=== PATIENT | female | born 1955 | race Caucasian/White ===

== ENCOUNTER 2017-06-23 00:24 | Inpatient (IN) | payer OTHER ==
[2017-06-22 15:15] LABS: INR 1.05
[~2017-06-23] VITALS: Ht 162.6 cm; Wt 90.3 kg
[2017-06-23] VITALS (17 sets, daily range): BP systolic 77–152; BP diastolic 60–89
[~2017-06-23 00:24] MED LIST: ALPR-429 PO; ASPI-1471 PO; CHOL500045 PO; ESOM40CA42 PO; ESTR0.62 PO; HYDR12.561 PO; IRBE1TAB67 PO; LORA1TAB69 PO; MELO-205 PO; MELO-207 PO; METO25TA23 PO
[2017-06-23] MEDS ORDERED: CLINDAMYCIN(*) 900 MG/NS 50 ML 50 ML IVPB ONE (06:00)
[2017-06-23] MEDS ORDERED: cloNIDine EPIDUR INJ 100MCG/ML 40 MCG, ROPIVACAINE 0.5% 20 ML VIAL 25 ML, EPINEPHrine H... INJ ONE (06:00)
[2017-06-23] MEDS ORDERED: TRANEXAMIC AC 1000 MG/10ML SDV 1,000 MG in DEXTROSE 5% 50 ML BAG 50 ML IV ONE (06:00)
[2017-06-23] MEDS ORDERED: LIDOCAINE/SOD BICARB 8.4% SYR ID ONE (06:15)
[2017-06-23] MEDS ORDERED: MIDAZOLAM 2 MG/2 ML VIAL IVP PRN (06:15)
[2017-06-23] MEDS ORDERED: NORMOSOL R SOLN(*) 1000 ML BAG 1,000 ML IV PRN ×2 (06:15→12:20)
[2017-06-23] MEDS ORDERED: COLC0.6C3 PO (08:30)
--- NOTE | 2017-06-23 08:49 | RADIOLOGY IMAGING REPORT ---
FACILITY: [facility] [place] PATIENT NAME: Lita Galdamez : 1955 MR: [id number] V: [id number] EXAM DATE: ORDERING PHYSICIAN: SID DIAS TECHNOLOGIST: Location: [facility] - [place], [place] Patient: Lita Galdamez : 1955 Visit/Account:[id number] Date of Sevice: 06/23/2017 Exam type: KNEE LIMITED RIGHT History: Total knee arthroplasty Comparison: None. Findings: Single lateral view of the right knee is provided. There are changes of severe osteoarthritis in the patellofemoral compartment but also the medial lateral compartment. Marked osteophytosis and joint space narrowing is noted. Trace knee effusion is noted. No acute fracture. IMPRESSION: 1. Significant osteoarthritis of the right knee but no acute osseous abnormality. Report Dictated By: Bruce Angelo MD at 06/23/2017 8:38 AM Report E-Signed By: Bruce Angelo MD at 06/23/2017 8:44 AM WSN:[id number]
[2017-06-23] MEDS ORDERED: DEXAMETHASONE SOD PHOS 10MG/ML ONE (09:40)
[2017-06-23] MEDS ORDERED: ONDANSETRON 4 MG/2 ML VIAL ONE (09:40)
[2017-06-23] MEDS ORDERED: MORPHINE PF 5 MG/10 ML AMP ONE (09:40)
[2017-06-23] MEDS ORDERED: PROPOFOL EMUL(*) 10MG/ML 20 ML 40 ML ONE (09:40)
[2017-06-23] MEDS ORDERED: PHENYLEPHRINE/NS/PF 0.4MG/10ML ONE (10:18)
[2017-06-23] MEDS ORDERED: NS 0.9% IRRIGATION 1000ML PLCT IR ONE (11:36)
[2017-06-23] MEDS ORDERED: MORPHINE SULFATE 30 MG PCA IV PRN (12:20)
[2017-06-23] MEDS ORDERED: BISACODYL 10 MG SUPP PR PRN (12:20)
[2017-06-23] MEDS ORDERED: PROMETHAZINE 25 MG/ML 1 ML AMP IVP PRN (12:20)
[2017-06-23] MEDS ORDERED: ZOLPIDEM TARTRATE 5 MG TAB PO PRN (12:20)
[2017-06-23] MEDS ORDERED: MAGNESIUM HYDROXIDE* 30ML UDCP PO PRN (12:20)
[2017-06-23] MEDS ORDERED: NALOXONE HCL 0.4 MG/ML VIAL IVP PRN ×2 (12:20→12:25)
[2017-06-23] MEDS ORDERED: MORPHINE 4 MG/ML SYR IVP PRN (12:20)
[2017-06-23] MEDS ORDERED: FLUSH 10 ML SYR IVP PRN (12:20)
[2017-06-23] MEDS ORDERED: diphenhydrAMINE 25 MG CAP PO PRN (12:25)
[2017-06-23] MEDS: ONDANSETRON 4 MG/2 ML VIAL IVP PRN (12:55)
[2017-06-23] MEDS ORDERED: PROMETHAZINE 25 MG/ML 1 ML AMP ONE (13:11)
[2017-06-23] MEDS ORDERED: NORMOSOL R SOLN(*) 1000 ML BAG 1,000 ML IV ONE (13:14)
--- NOTE | 2017-06-23 14:21 | RADIOLOGY IMAGING REPORT ---
FACILITY: [facility] PATIENT NAME: Ltia Galdamez : 1955 MR: [id number] V: [id number] EXAM DATE: ORDERING PHYSICIAN: SID DIAS TECHNOLOGIST: Location: [facility] Patient: Lita Galdamez : 1955 Visit/Account:[id number] Date of Sevice: 06/23/2017 KNEE LIMITED RIGHT History: Status post recent right knee replacement. Comparison study: June 23, 2017. Findings: Comparison the previous study shows that there has been interval placement of a right tota l knee prosthesis. There is soft tissue swelling and subcutaneous as well as intra-articular air rel ated to recent surgery. IMPRESSION: Status post recent right total knee replacement. Report Dictated By: Scot Dowell MD at 06/23/2017 2:15 PM Report E-Signed By: Scot Dowell MD at 06/23/2017 2:16 PM [id number]
[2017-06-23] MEDS ORDERED: ALPRAZolam 0.25 MG TAB PO PRN (14:50)
--- NOTE | 2017-06-23 16:23 | Hospitalist Consultation ---
History of Present Illness Requesting Physician Dr. Herzog Reason for Consult Hypertension History of Present Illness This patient was admitted for knee replacement surgery. It is reported that the surgery went well and was without complication. History Problems: (1) Essential hypertension (2) Gout Home Meds Reported Medications Colchicine (Colchicine) 0.6 Mg Capsule, 1 TAB PO DAILY 06/23/17 Loratadine/Pseudoephedrine (CLARITIN-D 24 HOUR TABLET) 1 Each Tab.er.24h, 1 EACH PO PRN Y for ALLERGY SYMPTOMS 06/17/17 Estrogens, Conjugated 0.625 Mg Tab (PREMARIN 0.625 MG TAB) 0.625 Mg Tablet, 0.625 MG PO QDAY, TAB 06/17/17 Meloxicam (MELOXICAM) 7.5 Mg Tablet, 15 MG PO QDAY 06/17/17 Cholecalciferol (Vitamin D3) (VITAMIN D) 5,000 Unit Tablet, 5000 UNIT PO QDAY 06/17/17 Aspirin (ASPIR 81) 81 Mg Tablet.dr, 81 MG PO QDAY, TAB 06/17/17 Alprazolam (XANAX) 0.5 Mg Tablet, 0.25 MG PO PRN Y for ANXIETY, TAB 06/17/17 Hydrochlorothiazide (HYDROCHLOROTHIAZIDE) 12.5 Mg Tablet, 1 TAB PO QDAY, TAB 06/17/17 Irbesartan/Hydrochlorothiazide (AVALIDE 300-12.5 MG TABLET) 1 Each Tablet, 1 EACH PO QDAY 06/17/17 Metoprolol Succinate (METOPROLOL SUCCINATE) 25 Mg Tab.er.24h, 3 TAB PO BID, TAB 06/17/17 Esomeprazole Magnesium (NEXIUM) 40 Mg Capsule.dr, 1 CAP PO QDAY, CAP 06/17/17 Discontinued Reported Medications Meloxicam (MELOXICAM) 15 Mg Tablet, 15 MG PO QDAY 06/17/17 Allergies: Coded Allergies: amoxicillin (Verified Adverse Reaction, Severe, NAUSEA/VOMITING, 06/17/17) clavulanic acid (Verified Adverse Reaction, Severe, NAUSEA/VOMITING, ) Sulfa (Sulfonamide Antibiotics) (Verified Adverse Reaction, Intermediate, headache, 06/17/17) Patient History: FH: cancer FATHER FH: stroke MOTHER Pacemaker BROTHER OR SISTER Hx Smoking: Yes (smoked [id number]) Smoking Status: Former Smoker When Quit Tobacco?: 1987 Caffeine Intake: Soda Caffeine/Cups Per Day: 1 can per day Hx Alcohol Use: Yes Hx Substance Use Disorder: No Social Drug Use: Never History of IV Drug Use: No Review of Systems All Systems Reviewed/Normal: Yes Exam Vital Signs Vital Signs Date Time Temp Pulse Resp B/P (MAP) Pulse Ox O2 Delivery O2 Flow Rate FiO2 06/23/17 15:54 56 117/69 (85) 95 Nasal Cannula 2.0 06/23/17 14:58 97.4 06/23/17 13:53 16 Neuro: No Gross deficits Cardiovascular: Regular Rate and Rhythm Respiratory: Clear to Auscultation Extremities: No Edema Integumentary: No Cyanosis Assessment and Plan Problems: (1) S/P knee replacement Assessment & Plan: She is on aspirin prophylaxis. (2) Essential hypertension Assessment & Plan: She is on chronic treatment with Irbesartan, hydrochlorothiazide, and metoprolol. The irbesartan and metoprolol have been ordered with hold parameters. (3) Gout Assessment & Plan: She is on chronic treatment with colchicine. Copies to: SID HERZOG MD Venous Thromboembolism Antithrombotics Is Pt On Any Antithrombotics?: No Exam Sepsis Risk: No Definite Risk ROSEY HAQ DO Jun 23, 2017 16:23
[2017-06-23] MEDS: CLINDAMYCIN(*) 600 MG/NS 50 ML 50 ML IVPB SCH (16:48)
[2017-06-23] MEDS: METOPROLOL SUCC XL 25 MG TABCR PO SCH (20:17)
[2017-06-24] VITALS (7 sets, daily range): BP systolic 107–171; BP diastolic 67–83; Ht 162.6 cm; Wt 90.3 kg
[2017-06-24] MEDS: CLINDAMYCIN(*) 600 MG/NS 50 ML 50 ML IVPB SCH ×2 (00:25→09:21)
[2017-06-24] MEDS: ACETAMINOPHEN 500 MG TAB PO SCH ×4 (06:14→23:45)
--- NOTE | 2017-06-24 06:34 | Hospitalist Progress Note ---
Subjective Progress Notes Subjective This patient was admitted for knee replacement. She had no acute events overnight. Patient Complains of: Cardiovascular: No: Chest Pain Respiratory: No: Shortness of Breath Physical Exam Vital Signs Date Time Temp Pulse Resp B/P (MAP) Pulse Ox O2 Delivery O2 Flow Rate FiO2 06/24/17 04:27 90 Nasal Cannula 1.0 06/24/17 04:17 97.7 63 16 112/74 (87) Cardiovascular: Regular Rate and Rhythm Respiratory: Clear to Auscultation Result Diagram: 06/24/17 0535 Assessment and Plan Problems: (1) S/P knee replacement Assessment & Plan: She is on aspirin prophylaxis. (2) Essential hypertension Assessment & Plan: She is on chronic treatment with Irbesartan, hydrochlorothiazide, and metoprolol. The irbesartan and metoprolol have been ordered with hold parameters. (3) Gout Assessment & Plan: She is on chronic treatment with colchicine. Exam Sepsis Risk: No Definite Risk ROSEY HAQ DO Jun 24, 2017 06:34
[2017-06-24] MEDS: ASPIRIN 325 MG ENTERIC COATED PO SCH (09:19)
[2017-06-24] MEDS: METOPROLOL SUCC XL 25 MG TABCR PO SCH ×2 (09:20→20:41)
[2017-06-24] MEDS: IRBESARTAN 150 MG TAB PO SCH (09:20)
[2017-06-24] MEDS: oxyCODONE HCL 5 MG CAP PO PRN ×4 (09:20→20:41)
[2017-06-24] MEDS: PANTOPRAZOLE SOD 40 MG TABEC PO SCH (09:20)
[2017-06-24] MEDS: ESTROGENS CONJ 0.625 MG TAB PO SCH (09:21)
[2017-06-24] MEDS: COLCHICINE 0.6 MG TAB PO SCH (09:21)
[2017-06-24] MEDS ORDERED: MORPHINE 2 MG/ML SYR IVP PRN (19:25)
--- NOTE | 2017-06-24 19:33 | OPERATIVE REPORT 1 ---
EVENT DATE: June 23, 2017 SURGEON: Mohit Herzog MD ANESTHESIOLOGIST: Salas Craft MD ANESTHESIA: Spinal followed by general. BRUSHING OPERATOR: JOY Garcia PREOPERATIVE DIAGNOSIS Right knee degenerative joint disease. POSTOPERATIVE DIAGNOSIS Right knee degenerative joint disease. PROCEDURE PERFORMED Right total knee arthroplasty. INSTRUMENTATION MicroPort Medial Pivot-Shift CS system with a 5 femur, a 4 tibia, a 4+, 12 mm CS insert, 8 x 29 symmetric patella. Femur was cut 6 degrees valgus, 10 mm. We utilized two packages of [employer] [place] Blue Cement. We utilized 50 mL of our standard ropivacaine and Toradol cocktail, and we closed the skin with a ZipLine wound suture closure system. ANTIBIOTICS One g of IV tranexamic acid was utilized 10 minutes prior to start and after the implantation of the prosthesis. SPECIMENS None. COMPLICATIONS None. BLOOD LOSS Less than 200 mL. DESCRIPTION OF OPERATION The patient received appropriate preoperative antibiotics. She was brought to the OR where Dr. Craft performed spinal, followed by general anesthesia. A right thigh tourniquet was placed, but it was not utilized through the procedure. The right lower extremity was prepped and draped in the usual sterile fashion. A midline incision was made, followed by a medial parapatellar arthrotomy. We discussed subperiosteally with the Bovie on the medial tibial plateau to the level of the semimembranosus insertion. Exuberant fat pad was excised by Bovie. The patella was released and everted. We noted eburnation in the medial compartment with significant bone loss off the medial tibial plateau. Grade III and IV changes were noted in the patellofemoral compartment, grade II changes on the lateral tibial plateau, and grade III in the lateral femoral condyle. Significant osteophytes were noted around the trochlea, medial and lateral femoral condyles, and medial tibial plateau, and these were removed during the process of the procedure. ACL and PCL were released subperiosteally by Bovcody after the knee had been brought up in hyperflexion. The remaining articular cartilage was removed from the distal femoral condyle by a sagittal saw, and then we broached the femoral canal with a step-cut drill. Appropriate retractors were placed, and the intramedullary femoral guide was then positioned, setting up the distal cut at 10 mm and 6 degrees valgus. With care was taken to protect the soft tissue, the distal cut was made. A 3-degree external rotation guide was then positioned referencing off the posterior condyles, epicondyles, and anterior flange. We sized the femur to a #5 and drilled the 3-degree external rotation holes. We then placed our four-in-one cutting block, our Z retractors to protect the soft tissue, and made our four cuts. We then went to the tibia, with the appropriate retractors bringing the tibia anterior to the femur. A step-cut drill was utilized to broach the tibial canal, and then we placed our intramedullary guide. Referencing off the least involved lateral tibial plateau, setting this up for a 10 mm cut, and assessing for rotation, we pinned our block into place. With care taken to protect the soft tissues, the tibial cut was made and sized to a # 4. The stumps of the ACL and PCL and medial and lateral menisci were removed by Bovie. Posterior osteophytes were removed by curved osteotome. The posterior capsule was then elevated with a Pugh elevator. A trial tibial baseplate was then positioned, referencing the previous rotation utilizing an alignment tower pinned into place. A 12 mm insert was then placed and then our #5 femur. We achieved full extension. Flexion was to 130 degrees, limited only by body habitus. She was stable to varus and valgus stress. At 90 degrees , we had a satisfactory anterior drawer. We placed the knee in full extension. The patella was sized to 20 mm. We cut this down 6 mm to accept an 8 x 29 peg hole guide, which was then positioned inferiorly and medially, and peg holes drilled. We then placed our patella trial. We brought the knee up into flexion. The peg holes were drilled for the femur. Pegs were placed and cut for the trochlear chip, and this was placed. Again, we had the aforementioned range of motion and stability, and the patella tracked well. The patella, tibia , and femur inserts were removed. Appropriate retractors were positioned to bring the tibia forward, and then we set up our tower for the tibia. The tibia was then cut, reamed, and punched. This instrumentation was then removed. A bone plug was placed in the distal femur. We then mixed two packages of [employer] [place] Blue Cement while we copiously irrigated by pulse lavage. We injected 10 mL of our cocktail in the posterior capsule. We then positioned the knee appropriately. Starting at the tibia, we cemented this into place, following by our 12 mm, 4+ CS insert, and then our #5 femur. Excess cement was removed. The knee was brought into full extension with axial compression while we cemented the patella. At 15 minutes, the cement had hardened. Again, we had the aforementioned range of motion and stability. We copiously irrigated by pulse lavage once again and injected the remaining cocktail into the quad region. We then closed the arthrotomy with #2 Vicryl in a [id number] suture fashion, followed by 2-0 Vicryl for the subcutaneous tissues. At 45 degrees, we cleaned the wounds and placed our ZipLine wound suture closure system. A compressive dressing was applied. The patient was extubated and taken to recovery in stable condition. Hospitalist team will be consulted for medical management and anticoagulation, PT and OT for rehab. MILLA
[2017-06-25 04:14] VITALS: BP 160/101
[2017-06-25] MEDS: oxyCODONE HCL 5 MG CAP PO PRN ×2 (04:22→08:31)
[2017-06-25] MEDS: ACETAMINOPHEN 500 MG TAB PO SCH (05:45)
[2017-06-25 05:47] VITALS: BP 171/88
[2017-06-25] MEDS ORDERED: ASPI-764 PO (08:08)
--- NOTE | 2017-06-25 08:12 | Hospitalist Progress Note ---
Subjective Progress Notes Subjective No cp/sob. No concerns from the patient. Physical Exam Vital Signs Date Time Temp Pulse Resp B/P (MAP) Pulse Ox O2 Delivery O2 Flow Rate FiO2 06/25/17 07:30 93 Nasal Cannula 1.0 06/25/17 05:47 171/88 (115) 06/25/17 04:14 98.1 65 12 Respiratory: Clear to Auscultation Result Diagram: 06/25/17 0652 Assessment and Plan Problems: (1) S/P knee replacement Assessment & Plan: No CV issues. She is to take aspirin 325mg a day for 30 days for blood clot prophylaxis. Also, we recommend having the patient hold Premarin for 30 days after surgery because of the slightly increased risk of clotting, but will defer the decision to the patient. (2) Essential hypertension Assessment & Plan: She is on chronic treatment with Irbesartan, hydrochlorothiazide, and metoprolol. BP elevated this morning, so will receive all her usual medications. (3) Gout Assessment & Plan: She is on chronic treatment with colchicine. (4) Hypoxia Status: Acute Assessment & Plan: Lungs clear. There is low clinical suspicion of pneumonia or PE. Likely, secondary to [place]'s high altitude, narcotics, recent surgery and anesthesia. If the patient is to go home on O2, will have saturations checked in a few days in PCP's office and bring the Hospitalists note. Exam Sepsis Risk: No Definite Risk BINTA GRACIA MD Jun 25, 2017 08:12
[2017-06-25] MEDS: ONDANSETRON 4 MG/2 ML VIAL IVP PRN (08:30)
[2017-06-25] MEDS: ESTROGENS CONJ 0.625 MG TAB PO SCH (08:31)
[2017-06-25] MEDS: IRBESARTAN 150 MG TAB PO SCH (08:31)
[2017-06-25] MEDS: METOPROLOL SUCC XL 25 MG TABCR PO SCH (08:31)
[2017-06-25] MEDS: PANTOPRAZOLE SOD 40 MG TABEC PO SCH (08:32)
[2017-06-25] MEDS: COLCHICINE 0.6 MG TAB PO SCH (08:32)
[2017-06-25] MEDS: ASPIRIN 325 MG ENTERIC COATED PO SCH (08:32)
[2017-06-25] MEDS ORDERED: HYDROCHLOROTHIAZIDE 25 MG TAB PO SCH ×2 (09:00)
[2017-06-25] MEDS ORDERED: OXYC-869 PO (09:31)
[2017-06-25] MEDS ORDERED: ONDA4TAB97 PO (11:58)
== END 2017-06-25 12:10 | disposition home or self-care (01) | DRG 470 ==
LOC: OR 00:24 → MED 13:40
PROVIDERS: ADMIT Orthopaedic Surgery; ATTEND Orthopaedic Surgery
PROC: 0SRC0J9 Replacement of Right Knee Joint with Synthetic Substitute, Cemented, Open Approach (ICD-10-PCS; principal; 2017-06-23 09:54)
DX: M17.11 Unilateral primary osteoarthritis, right knee (principal); I10 Essential (primary) hypertension; K21.9 Gastro-esophageal reflux disease without esophagitis; M1A.9XX0 Chronic gout, unspecified, without tophus (tophi); F41.9 Anxiety disorder, unspecified; E66.9 Obesity, unspecified; G62.9 Polyneuropathy, unspecified; T70.29XA Other effects of high altitude, initial encounter; T40.605A Adverse effect of unspecified narcotics, initial encounter; R09.02 Hypoxemia; Y83.8 Other surgical procedures as the cause of abnormal reaction of the patient, or of later complication, without mention of misadventure at the time of the procedure; Y79.3 Surgical instruments, materials and orthopedic devices (including sutures) associated with adverse incidents; Y92.239 Unspecified place in hospital as the place of occurrence of the external cause; Z88.0 Allergy status to penicillin; Z87.891 Personal history of nicotine dependence; Z88.2 Allergy status to sulfonamides; Z88.8 Allergy status to other drugs, medicaments and biological substances; Z90.710 Acquired absence of both cervix and uterus; Z68.35 Body mass index [BMI] 35.0-35.9, adult
CPT/HCPCS: 36415; 85014; 85018; 85610; 86850; 86900; 86901; 97161; C1713; C1776; J0171; J0735; J1100; J1885; J2250; J2270; J2370; J2405; J2550; J2704; J2795; J3490; J7050; J7060